=== PATIENT | female | born 1965 | race Caucasian/White ===

== ENCOUNTER 2019-11-28 05:18 | Day surgery (SDC) | payer OTHER ==
[2019-11-27 13:26] VITALS: BMI 39.3
[2019-11-28 12:31] VITALS: TEMP 98.3
[2019-11-28 13:07] VITALS: BP 133/87; PULSE 66
--- NOTE | 2019-12-01 19:31 | PATH ---
Surgical Pathology Report Patient Name: OLE HUIZAR [facility]. Rec. #: [id number] /Age/Gender: 1965 (Age: 54) / F Account: [id number] Location: U-ENDOSCOPY Taken: 11/28/2019 Received: 11/28/2019 Reported: 12/01/2019 Physicians: Prateek Worrell M.D. Specimen(s) Received A: DUODENUM B: STOMACH C: ESOPHAGUS Clinical History Screening, heartburn Postoperative diagnosis: Hiatal hernia, esophagitis, hemorrhoids, diverticulosis Final Diagnosis A. DUODENUM, BIOPSY: DUODENAL MUCOSA WITHOUT SIGNIFICANT PATHOLOGIC FINDINGS. B. STOMACH, BIOPSY: GASTRIC MUCOSA WITH SEVERE CHRONIC ACTIVE GASTRITIS. IMMUNOHISTOCHEMICAL STAIN FOR H. PYLORI IS POSITIVE (FEW). C. ESOPHAGUS, BIOPSY: SQUAMOCOLUMNAR MUCOSA WITH MODERATE CHRONIC INFLAMMATION AND CHANGES OF MODERATE REFLUX ESOPHAGITIS AND FOCAL PARAKERATOSIS. NO INTESTINAL METAPLASIA OR DYSPLASIA IDENTIFIED. Positive and negative controls (internal if applicable) show appropriate results. Electronically Signed Jo Ann Valenzuela M.D. Gross Description A. Received in formalin, labeled "biopsy duodenum" is a roque, irregular portion of soft tissue measuring 0.4 cm. in greatest dimension. The specimen is submitted in toto in one cassette. B. Received in formalin, labeled "biopsy stomach" is a roque, irregular portion of soft tissue measuring 0.3 cm. in greatest dimension. The specimen is submitted in toto in one cassette. C. Received in formalin, labeled "biopsy esophagus" is a roque, irregular portion of soft tissue measuring 0.2 cm. in greatest dimension. The specimen is submitted in toto in one cassette. 11/28/2019 [facility]11/28/2019
== END 2019-11-28 13:10 | disposition home or self-care (01) ==
LOC: JASU-ENDO 05:18
PROVIDERS: ATTEND Internal Medicine Gastroenterology
PROC: 0DB98ZX Excision of Duodenum, Via Natural or Artificial Opening Endoscopic, Diagnostic (ICD-10-PCS; 2019-11-28)
PROC: 0DB68ZX Excision of Stomach, Via Natural or Artificial Opening Endoscopic, Diagnostic (ICD-10-PCS; 2019-11-28)
PROC: 0DB58ZX Excision of Esophagus, Via Natural or Artificial Opening Endoscopic, Diagnostic (ICD-10-PCS; 2019-11-28)
PROC: 0DJD8ZZ Inspection of Lower Intestinal Tract, Via Natural or Artificial Opening Endoscopic (ICD-10-PCS; principal; 2019-11-28 11:30)
DX: Z12.11 Encounter for screening for malignant neoplasm of colon (principal); K64.8 Other hemorrhoids; K57.30 Diverticulosis of large intestine without perforation or abscess without bleeding; K29.50 Unspecified chronic gastritis without bleeding; K44.9 Diaphragmatic hernia without obstruction or gangrene; K21.0 Gastro-esophageal reflux disease with esophagitis
CPT/HCPCS: 43239; G0121; 88305-TC; 88342-TC